=== PATIENT | male | born 1970 | race Caucasian/White ===

== ENCOUNTER 2024-06-22 20:04 | Observation (INO) | payer SELFPAY ==
[2024-06-22 16:44] VITALS: BP 138/86
[2024-06-22 16:48] LABS: Glucose - Point of Care 514 mg/dl (70-99)
[2024-06-22 17:13] LABS: Venous Blood Gas B.E. 3.3 mmol/L (-4 to +4); Venous Blood Gas HCO3 29.6 mmol/L (22-27); Venous Blood Gas O2 Sat % 61.2 %; Venous Blood Gas pCO2 50 mmHg (35-48); Venous Blood Gas pH 7.38 (7.32-7.43); Venous Blood Gas pO2 35 mmHg (30-50)
[2024-06-22 17:16] LABS: % Basophils 0.5 % (0-2); % Eosinophils 1.6 % (0-6); % Neutrophils 64.9 % (42.2-75.2); Absolute Eosinophils 0.1 10^3/uL (0-0.7); Absolute Lymphocytes 1.1 10^3/uL (1.2-3.4); Absolute Monocytes 0.3 10^3/uL (0.1-0.6); Absolute Neutrophils 2.8 10^3/uL (1.4-6.5); Hematocrit 42.8 % (39.0-52.0); Hemoglobin 15.2 g/dL (13.0-18.0); Mean Corp Hgb Conc. 35.5 g/dL (33.0-37.0); Mean Corpuscular Hgb 30.1 pg (27.0-31.0); Mean Corpuscular Volume 84.8 fL (80.0-94.0); Mean Platelet Volume 9.8 fL (7.4-10.4); Nucleated Red Blood Cells % 0 % (-); Platelet Count 223 10^3/uL (130-400); Red Blood Cell Count 5.05 10^6/uL (4.70-6.10); Red Cell Dist. Width 12.2 % (11.5-14.5); White Blood Cell Count 4.3 10^3/uL (4.8-10.8)
[2024-06-22 17:30] LABS: ALT (SGPT) 17 U/L (0-50); AST (SGOT) 19 U/L (17-59); Albumin 4.6 g/dl (3.5-5.0); Alkaline Phosphatase 177 U/L (38-126); Blood Urea Nitrogen 16 mg/dl (9-20); Calcium 9.2 mg/dl (8.4-10.2); Carbon Dioxide 24 mmol/L (22-30); Chloride 99 mmol/L (98-107); Glucose 530 mg/dl (70-99); Potassium 4.6 mmol/L (3.5-5.1); Sodium 133 mmol/L (135-145); Total Bilirubin 0.9 mg/dl (0.2-1.3); Total Protein 6.9 g/dl (6.3-8.2); eGFR > 60.00
[2024-06-22 17:36] LABS: B-Hydroxybutyrate 0.34 mmol/L (0.02-0.27)
[2024-06-22 18:21] VITALS: BP 124/88; BMI 29.5
--- NOTE | 2024-06-22 18:46 | ED.GENMED ---
History of Present Illness
General
Chief Complaint: Blood Sugar Problem
Source: patient
Time Seen by Provider: 06/22/24 18:28
History of Present Illness
History of Present Illness:
53-year-old male with past medical history of GERD and asthma presenting to the ER at the request of her primary care physician for new onset diabetes. Patient has had an approximate 40 pound weight loss since January, polyuria, polydipsia and
polyphasia during this time as well. Patient had blood work done through his primary care provider with a blood sugar of around 600. Patient did take a 4 unit dose of a friend's insulin last night but has not been using any other medications
since. He denies any abdominal pain, nausea, vomiting and states he feels as if he is in his usual state of health presently.
Past History
Past History
ED Past Medical History: Asthma, GERD, Hypercholesterolemia, Psychiatric (Anxiety) and Other (Cervical disc disease, frequent headaches)
ED Past Surgical History: Orthopedic (Right shoulder surgery, right knee surgery, left hip surgery, hand surgeries, lumbar spine surgery, cervical discectomy with fusion C4-C7 May 15, 2012) and Other (Hernia repair)
Social History
Tobacco: Non-smoker
Alcohol: Occasional
Drug: None
Personal:
Living: with family
Employment: Not employed
Family History
Family History: Diabetes; Negative Early CAD or CAD
Review of Systems
Review of Systems
All Other Systems: ROS reviewed and negative except as documented in HPI and ROS
Phy Exam
Physical Exam
Physical Exam:
GENERAL: Alert , in no apparent distress
EYE: conjunctiva clear
NECK: Supple
ENT: o/p clr, mmm.
CARDIAC: Regular rate and rhythm
LUNGS: Clear breath sounds bilaterally, no acute respiratory distress, no wheezes/rales/rhonchi
NEUROLOGICAL: Alert and oriented
SKIN: Warm and dry, skin intact.
MUSCULOSKELETAL: well perfused.
PSYCH: Normal and appropriate interaction.
Scores
Heart Failure Risk
Heart Failure Risk Score: Not Applicable
Heart Score for Chest Pain Patients
STEMI patient?: Not applicable
Withdrawal Assessment of Alcohol
Withdrawal Assessment Completed?: Not applicable
Course
Orders/Labs/Results
Orders:
Orders
06/22/24 17:00
B-Hydroxybutyrate Urgent
Comprehensive Metabolic Panel Urgent
Venous Blood Gas Urgent
%Oxygen/Room Air: room air
06/22/24 17:01
Complete Blood Count/With Diff Urgent
06/22/24 18:31
0.9% Sodium Chloride 1000 ml [Nss] 1,000 ml IV BOLUS
06/22/24 18:32
Insulin Aspart [NOVOLOG vial] 8 units SC NOW STA
06/22/24 18:33
Hemoglobin A1c [Glycohemoglobin (HgbA1c)] Urgent
Urinalysis Urgent
Date Specimen was Collected: 06/22/24
Time Specimen was Collected: 19:01
Abnormal Lab Results
06/22/24 06/22/24 06/22/24
16:46 17:00 17:01
WBC 4.3 L 10^3/uL
(4.8-10.8)
Absolute Lymphs (auto) 1.1 L 10^3/uL
(1.2-3.4)
VBG pCO2 50 H mmHg
(35-48)
VBG HCO3 29.6 H mmol/L
(22-27)
Sodium 133 L mmol/L
(135-145)
Glucose 530 H* mg/dl
(70-99)
Alkaline Phosphatase 177 H U/L
(38-126)
B-Hydroxybutyrate 0.34 H mmol/L
(0.02-0.27)
POC Glucose 514 H* mg/dl
(70-99)
06/22/24 17:01
06/22/24 17:00
Vital Signs
Initial and Last Documented VS:
Initial Vital Signs
Temp Pulse Resp BP Pulse Ox
98.5 F 93 14 138/86 98
06/22/24 16:44 06/22/24 16:44 06/22/24 16:44 06/22/24 16:44 06/22/24 16:44
Last Documented Vital Signs
Temp Pulse Resp BP Pulse Ox
98.5 F 86 16 144/94 97
06/22/24 16:44 06/22/24 19:05 06/22/24 19:05 06/22/24 19:05 06/22/24 18:22
MDM/Problems Addressed
Differential Diagnosis Includes:
New onset diabetes with hyperglycemia, DKA, HHNK, malignancy
MDM/Problems Addressed:
53-year-old male presenting to the ER for evaluation of new onset diabetes. Blood sugars reportedly as an outpatient greater than 600. Here on fingerstick patient's [id number] glucose is 514, CMP 530. Anion gap of 10. No acidosis on VBG.
Beta hydroxybutyrate slightly elevated. I suspect diabetes with hyperglycemia but no DKA/HHNK. Given this is a new diagnosis for the patient with his profound hyperglycemia and significant symptoms will admit for further evaluation and treatment.
Will initiate treatment here with 1 L normal saline as well as 8 units of insulin regular subcutaneously
*Pulse Oximetry
Patient hypoxic: no
*Critical Care Note
Total Time (30-74mins, 75-104mins- exclusive of procedures): Not Applicable
Patient Management
Discussion with other providers: Hospitalist
Escalation/DeEscalation of care consider admission/obs:
Hospitalist team is aware and accepts for continued evaluation and treatment of patient's new onset diabetes
ED Attending Note
-
Portions of this chart may have been created with voice recognition software.� Occasional wrong word or��sound alike� substitutions may have occurred due to the inherent limitations of voice recognition software.
Discharge Plan
Departure
Patient Disposition: Admit
Date of Disposition: 06/22/24
Time of Disposition: 18:47
Presentation/result/management discussed w/ accepting MD/DO: Hospitalist
Discharge Problem:
Diabetes mellitus, new onset
Prescriptions:
No Action
lansoprazole [Prevacid] 15 MG capsule,delayed release(DR/EC)
15 mg PO BID
hydrocodone-acetaminophen [[place]] 1 EACH tablet
1 ea PO Q6HPRN PRN (Reason: pain) Qty: 40 0RF
Rx Instructions:
Take 1 tablet four times a day, every 6 hours for pain
lorazepam 1 MG tablet
1 mg PO TIDPRN PRN (Reason: pain/spasms) Qty: 40 0RF
sulfamethoxazole-trimethoprim 1 TABLET tablet
1 tab PO BID Qty: 14 0RF
Interventions
Interventions:
*Risk Screen - Suicide Last Done: 06/22/24 16:52
*General Assessment Last Done: 06/22/24 16:52
*Neglect/Abuse Screening Last Done: 06/22/24 16:52
*ED COVID-19 Vaccine History Last Done: 06/22/24 16:52
ED- Neurological Assessment Last Done: 06/22/24 18:22
Discharge Date and Time
Print Language: PASHTO
[2024-06-22 19:05] VITALS: BP 144/94
[2024-06-22] MEDS: NSS 1000 IV (19:06)
[2024-06-22] MEDS: NOVOLOG vial 8 UNITS SC (19:08)
--- NOTE | 2024-06-22 19:26 | W.PN.UPDATE ---
Update Note
Progress Note Update
This is an addendum to the H&P written by Zayda Roberts on 06/22/24. Patient seen and examined independently with PA.
53-year-old male past medical history of spinal stenosis presenting with 40 pound weight loss, polyuria and polydipsia. Blood sugar was checked by friend and it was 600.
Blood sugar currently 514. IV fluids given. 8 units NovoLog given. Patient with new onset diabetes likely type II. Start 10 units Lantus, insulin sliding scale. Check A1c. Diabetic nurse educator consulted.
[2024-06-22 19:27] LABS: Urine Albumin Negative (Neg - Trace); Urine Bilirubin Negative (Negative); Urine Character Clear (Clear); Urine Color Yellow; Urine Glucose 4+ (Negative); Urine Ketone 2+ (Negative); Urine Leukocyte Negative (Negative); Urine Nitrite Negative (Negative); Urine Occult Blood Negative (Negative); Urine Specific Gravity 1.015 (<1.030); Urine Urobilinogen Negative (Neg - 1+)
--- NOTE | 2024-06-22 19:30 | HPS.HSE ---
Family Physician
-
Family Physician: Jamie Tomlin
Chief Complaint
-
Elvated Blood Sugar
History of Present Illness
Patient is a 53 y/o male who presents with elevated blood sugars. Patient reports back in January he started with polyuria and polydipsia. He reports despite eating whatever he wants he has lost about 40lbs over the past 5 months. Patient had a
friend take his blood sugars which was found to be over 600. His PCP then referred him to the emergency department for evaluation.
Medical History
Past Medical History
Past Medical History: Reports Other
Additional Past Medical History:
GERD
Past Surgical History: Reports Other
Additional Past Surgical History:
Multiple Orthopedic Surgeries, including cervical spine, right rotator cuff, hip and knee
Social History
Tobacco: Non-smoker
Alcohol: None
Family History
Family History: Not pertinent
Allergies / Home Medications
Allergies reflects when Allergies were last updated in [facility].
Home Medications with original date entered in [facility]
Allergy/Medication List:
Allergies
Allergy/AdvReac Type Severity Reaction Status Date / Time
acetaminophen [From Percocet] Allergy Nausea / Verified 06/22/24 16:50
Vomiting
oxycodone HCl [From Percocet] Allergy Nausea / Verified 06/22/24 16:50
Vomiting
Penicillins Allergy nausea/vomi Verified 06/22/24 16:50
ting
Shellfish *RETIRED-11/19/11 Allergy can't Verified 06/22/24 16:50
[Shellfish] breath/throat
swells
scopalamine patch Allergy hallucinati Uncoded 06/22/24 16:50
ons
shellfish Allergy Anaphylaxis Uncoded 06/22/24 16:50
Home Medications
lansoprazole 15 mg capsule,delayed release 15 mg PO DAILY 06/22/24
Review of Systems
-
A 12 point ROS was completed and negative except as noted: Yes
Constitutional: Denies Fever or Chills
Respiratory: Denies Cough or Trouble Breathing
Cardiac: Denies Chest Pain or Palpitations
Abdomen/GI: Denies Abdominal Pain, Nausea, Vomiting or Diarrhea
Endocrine: Reports See HPI
Physical Exam
Vital Signs
Vital Signs
Temp Pulse Resp BP Pulse Ox
98.5 F 86 16 144/94 97
06/22/24 16:44 06/22/24 19:05 06/22/24 19:05 06/22/24 19:05 06/22/24 18:22
Physical Exam
General: Comfortable and Conversant
HEENT: Anicteric and Moist mucous membranes
Respiratory: Clear and Non Labored Respirations
Cardiac: S1/S2 and Regular Rhythm
GI: Soft, Non Tender and Other (Protuberant)
Genito-urinary: Clear Urine
Musculoskeletal: No Clubbing, No Cyanosis and No Edema
Skin: Warm and Dry
Neuro: Awake, Alert, Oriented and Nonfocal/grossly intact
Psych: Calm
Laboratory Results
-
06/22/24 17:01
06/22/24 17:00
Laboratory Results
Total Bilirubin 0.9 mg/dl (0.2-1.3) 06/22/24 17:00
AST 19 U/L (17-59) 06/22/24 17:00
ALT 17 U/L (0-50) 06/22/24 17:00
Alkaline Phosphatase 177 U/L (38-126) H 06/22/24 17:00
Data Reviewed
-
Lab Data: Labs Reviewed by me
Impression/Plan
-
New Onset Diabetes Mellitus, likely Type II
-NovoLog 8 units given in the emergency department
-Start Lantus 10 units HS
-Consult Horticultural Farm Manager and Diabetic [employer] TR[employer] DRIVER for insulin recommendations
-HgbA1c pending
-Monitor sugars and continue coverage insulin
Code Status: Full Code
[2024-06-22 21:03] VITALS: BP 141/86; BMI 29.9
--- NOTE | 2024-06-22 21:05 | PTCARENOTE ---
Received patient from ED via stretcher. Patient ambulated from stretcher to bed independently. No current complaints of pain. Oriented patient to room and placed call walters within reach.
[2024-06-22 21:10] LABS: Glucose - Point of Care 201 mg/dl (70-99)
[2024-06-22] MEDS: LANTUS 0.1 UNITS SC (22:02)
[2024-06-22 23:36] VITALS: BP 124/83
--- NOTE | 2024-06-23 07:13 | PN.DE.MGMTRT ---
Insulin Management
- -
06/23/2024 Diabetes Management Consult
Patient admitted 06/22 with elevated blood sugar. States he has lost 40 pounds in 3 months despite eating anything he wants. PMH asthma, GERD. HCL, anxiety, spinal stenosis, multiple ortho surgeries. No diabetes medications prior to surgery. A1C
15.4%, cr .9, eGFR > 60.
Patient is sleeping in a recliner in the hallway. Awakened easily, alert and oriented, able to discuss diabetes care. States no family history of diabetes. States he 'has to get out of here; this place stinks (smells) and I can't sleep because
those bells keep going off'.
Redirected patient to current A1C and average glucose over 400. He wanted to know if this is type 1 or type 2. Discussed with patient recent weight loss and current A1C would warrant further lab testing by primary for a definitive answer; but that
he most likely has type 2 diabetes. He states he just wants to get out of here multiple times during my visit. He stated he has 'everything', meter needles etc. Advised he should not use another persons insulin or pen needles. I don't think he
has a meter although he said he did but could not name or describe it.
Reviewed importance of glucose control and that both lantus at HS and novolog AC would be required along with metformin.
Patient glucose 514 @ 1646; received 8 units novolog @ 2109. HS glucose 201. 10 units lantus @ HS.
Fasting glucose this AM 257. Will start metformin 500 mg BID, increase lantus to 18 units @ HS and start AC novolog 6 units with moderate corrective.
Diabetes Nurse Educator to provide Contour Next meter and instruct
Will follow.
Shot Blast Equipment Operator to see patient today for monitor instruction and insulin instruction
Discussed with nurse.
Diabetes History
- -
Type of Diabetes: 2 requiring insulin
Pre-Admission Diabetes Regimen
06/22/24
17:00
Creatinine 0.9
Insulin Pump Settings
IP Diabetes Regimen
06/22/24 06/22/24 06/22/24
16:46 17:00 21:09
Glucose 530 H*
POC Glucose 514 H* 201 H
Patient Education
[2024-06-23 07:17] LABS: Glucose - Point of Care 257 mg/dl (70-99)
[2024-06-23 07:30] VITALS: BP 110/65
[2024-06-23] MEDS: GLUCOPHAGE 500 MG PO (08:19)
[2024-06-23] MEDS: NOVOLOG FLEXPEN-MODERATE RESISTANCE 5 UNITS SC (08:19)
[2024-06-23] MEDS: PROTONIX 20 MG PO (08:19)
[2024-06-23 09:11] LABS: Glycohemoglobin (HgbA1c) 15.4 % (4.0-5.6)
[2024-06-23 11:26] VITALS: BP 145/64
[2024-06-23 11:37] VITALS: BMI 29.9
[2024-06-23 12:28] LABS: Glucose - Point of Care 208 mg/dl (70-99)
[2024-06-23] MEDS: NOVOLOG FLEXPEN-MODERATE RESISTANCE 3 UNITS SC (12:28)
[2024-06-23] MEDS: NOVOLOG FLEXPEN 5 UNITS SC (12:29)
--- NOTE | 2024-06-23 12:42 | PTCARENOTE ---
06/23/2024 DIABETES EDUCATION
I met with Jace to review diabetes management, is newly diagnosed with diabetes. He states the MD's are not sure if he has T1D or T2D.
He states he was having polyuria, polydipsia, lethargy at home, spoke to a friend who informed him he may have diabetes. He states he purchased a glucometer from [employer] and was checking his glucose #'s, they were in the 500's. His PCP
told him to come to the ER immediately.
I educated on physiology of T2D, organ damage, managing with medications, monitoring BG, nutrition, activity, sleep and managing stress.
I reinforced signs of hyperglycemia, hypoglycemia and hypoglycemia protocol; BS parameters and recommended HbA1c goals, written material provided.
I educated and reviewed using Contour Next glucometer, member acknowledged understanding with a self demonstration of checking BS. Provided him with a Contour Next sample kit and told him we will order test strips and lancets. He states that his
insurance does not go into effect until Friday and he has enough funds to pay muñoz for the Contour Next supplies as well as the supplies he already purchased. Provided brochure on CGM, encouraged him to discuss with his PCP.
I educated and demonstrated on insulin injection technique, timing, and storage. Discussed long and short acting insulin; onset/peak/duration, and encouraged Jace to administer his own injections with RN supervision while admitted. Discussed
normal target glucose ranges and a monitoring schedule 15 minutes before each meal when prescribed Novolog, and preprandial AM and/or bedtime as recommended by MD.
Encouraged patient to follow up with his PCP for post d/c appointment and to monitor medication and blood glucose levels. Provided list of endocrinologists if desired, to contact insurance company to verify in network status. Requested
prescription sent to pharmacy for test strips and lancets for back up SMBG. Information provided on the outpatient DSME program. Patient verbalized understanding.
--- NOTE | 2024-06-23 13:19 | W.PN.HOSP.TC ---
Today's Communication/Plan
-
Discharge per pt request . Will not stay another night.
He learned how to do insulin and knows how to do accu checks
Assessment / Plan
Assessment / Plan
53-year-old male with elevated blood sugar since January he has had polyuria and polydipsia and has lost about 40 pounds in the past 5 months. Blood sugar was taken at home was found to be over 600
CVS: S1-S2 normal
Chest: CTA B/L
Abdomen: Soft, NT / Bowel sounds present
Extremities: No edema
# New diagnosis of diabetes
Hemoglobin A1c 15.4!
Agree with metformin, Lantus and NovoLog
Patient states that he really needs to get out of here today he cannot stay another night. States that he did learn how to do insulin and has a friend who can teach him. Is aware about the symptoms of hypoglycemia. Also discussed about daily
visual inspection of his feet before bed and also annual eye exam.
# Weight loss likely secondary to poorly controlled diabetes however patient needs further workup as outpatient for weight loss including a colonoscopy discussed with the patient
# DDD/multiple orthopedic surgeries
# Migraines
# Asthma NOS
# GERD-continue PPI
# Obesity per BMI
# Lovenox for DVT prophylaxis
# Full code
Discussed with nursing
Discussed with diabetic management LAB ASST
Anticipated Discharge: Today
Subjective/Interval History
-
Date of Service: June 23, 2024
Objective Data
-
Vital Signs:
Vital Signs
Temp Pulse Resp BP Pulse Ox
97.3 F 61 18 145/64 95
06/23/24 11:26 06/23/24 11:26 06/23/24 11:26 06/23/24 11:26 06/23/24 11:26
--- NOTE | 2024-06-23 13:35 | W.DS.TRANS ---
Addendum entered and electronically signed by Cynthia Abdalla MD 06/23/24 15:15:
Dictation- [id number]
Original Note:
DC Summary - Hospital Aides And Assistants Teacher
-
Discharge Instructions:
Discharge Diagnosis/Procedures Diabetes
Weight loss
Diet Diabetic, Carb Controlled
Activity As tolerated
Driving Restrictions As prior to admission
Instructions:
Stand-Alone Forms:
Changes to Home Medications: Yes
Discharge Medications:
DC Medications w/original date entered in [employer]
lansoprazole 15 mg capsule,delayed release 15 mg PO DAILY GERD 06/22/24
blood sugar diagnostic (Contour Next Test Strips) #200 06/23/24
insulin aspart U-100 100 unit/mL (3 mL) subcutaneous pen (Novolog FlexPen U-100 Insulin aspart) 5 unit (0.05 mL) SC AC #5 06/23/24
insulin glargine 100 unit/mL (3 mL) subcutaneous pen (Lantus Solostar U-100 Insulin) 18 unit (0.18 mL) SC HS #5 06/23/24
lancets 21 gauge (Color Lancets) #200 06/23/24
metformin 500 mg tablet 500 mg PO BID@0800,1700 #60 tabs 06/23/24
pen needle, diabetic 32 gauge x 5/32' (Radha 2nd Gen Pen Needle) #200 ea 06/23/24
Home Medication Changes
new
blood sugar diagnostic (Contour Next Test Strips) #200 ea 06/23/24
insulin aspart U-100 100 unit/mL (3 mL) subcutaneous pen (Novolog FlexPen U-100 Insulin aspart) 5 unit (0.05 mL) SC AC #5 06/23/24
insulin glargine 100 unit/mL (3 mL) subcutaneous pen (Lantus Solostar U-100 Insulin) 18 unit (0.18 mL) SC HS #5 06/23/24
lancets 21 gauge (Color Lancets) #200 06/23/24
metformin 500 mg tablet 500 mg PO BID@0800,1700 #60 tabs 06/23/24
pen needle, diabetic 32 gauge x ' (Radha 2nd Gen Pen Needle) #200 ea 06/23/24
Pending Results: No
== END 2024-06-23 13:54 | disposition home or self-care (01) ==
LOC: 4 EAST ACU 20:04
PROVIDERS: Physician Assistant Medical; Student in an Organized Health Care Education/Training Program; ADMITTING PHYSICIAN Hospitalist; ATTENDING PHYSICIAN Hospitalist; EMERGENCY PHYSICIAN Emergency Medicine; FAMILY PHYSICIAN Family Medicine
DX: E11.65 Type 2 diabetes mellitus with hyperglycemia (principal); K21.9 Gastro-esophageal reflux disease without esophagitis; J45.909 Unspecified asthma, uncomplicated; E78.00 Pure hypercholesterolemia, unspecified; F41.9 Anxiety disorder, unspecified; E66.9 Obesity, unspecified; R63.4 Abnormal weight loss; Z83.3 Family history of diabetes mellitus; Z98.1 Arthrodesis status; Z68.29 Body mass index [BMI] 29.0-29.9, adult; Z88.8 Allergy status to other drugs, medicaments and biological substances; Z88.6 Allergy status to analgesic agent; Z88.5 Allergy status to narcotic agent; Z88.0 Allergy status to penicillin; Z91.013 Allergy to seafood; Z79.899 Other long term (current) drug therapy
CPT/HCPCS: 80053; 81003; 82010; 82805; 82962; 83036; 85025; 96360; 96372; 99285; G0378

== ENCOUNTER → 2025-02-12 08:49 | Outpatient (REF) | payer BC, SELFPAY | LOC: RAD 08:49 | PROVIDERS: ATTENDING PHYSICIAN Physician Assistant Surgical; FAMILY PHYSICIAN Family Medicine | DX: M54.12 Radiculopathy, cervical region (principal) | CPT/HCPCS: 72125 ==

== ENCOUNTER → 2025-02-18 18:59 | Outpatient (REF) | payer BC, SELFPAY | LOC: PAVMRI 18:59 | PROVIDERS: ATTENDING PHYSICIAN Physician Assistant Surgical; FAMILY PHYSICIAN Family Medicine | DX: M54.12 Radiculopathy, cervical region (principal); M54.2 Cervicalgia; R20.2 Paresthesia of skin; Z98.1 Arthrodesis status | CPT/HCPCS: 72141 ==